=== PATIENT | female | born 1975 | race Caucasian/White ===

== ENCOUNTER → 2020-09-23 | Outpatient (CLI) | payer BC ==
--- NOTE | 2020-09-23 16:31 | Diagnostic Imaging Report ---
INDICATION: Routine screening. COMPARISON: No prior mammograms are available for comparison. This is a baseline study. TECHNIQUE: 2D and 3D bilateral screening mammography was performed with CAD. FINDINGS: Both breasts are heterogeneously dense, limiting the sensitivity of mammography. There is a circumscribed density in the superior right breast, best seen on the MLO view. This appears to be laterally located. This could represent a small cluster of cysts but additional views are recommended for further evaluation. It is not well-seen on the CC view. There is an area of questionable architectural distortion in the inferior and outer left breast and additional views of this area are recommended as well. No malignant-appearing microcalcifications are seen. The axillae are unremarkable. IMPRESSION: Bilateral breast densities. Further evaluation with additional views would be recommended. ACR BI-RADS Category 0: Incomplete. (Needs additional imaging evaluation). Result letter will be mailed to the patient. Note: At least 10% of breast cancer is not imaged by mammography. Dictated by: Dictated on workstation # [id number]
== END ==
LOC: RAD 15:38
PROVIDERS: ATTEND Obstetrics & Gynecology
DX: Z12.31 Encounter for screening mammogram for malignant neoplasm of breast (principal)
CPT/HCPCS: 77063; 77067

== ENCOUNTER → 2021-01-23 | Outpatient (CLI) | payer BC ==
--- NOTE | 2021-01-23 14:53 | Diagnostic Imaging Report ---
Indication: Bilateral breast densities. Patient presents for additional views. Correlation is made with the screening study from 09/23/2020. Bilateral 2-D and 3-D diagnostic mammography was performed. Right breast: There is a persistent nodular density in the upper and outer right breast approximately 8 cm from the nipple after additional views including spot compression ML, conventional ML as well as spot compression exaggerated CC and routine exaggerated CC views. This area should be evaluated with ultrasound. Left breast shows some persistent density in the lower outer portion approximately 7 cm from the nipple. This could represent scarring. Patient did undergo breast reduction surgery in March 2020. No discrete mass is seen. No suspicious calcifications are identified. IMPRESSION: BI-RADS 0 1. Persistent nodular density in the upper outer right breast. Further evaluation with ultrasound is recommended. 2. Residual density lower outer left breast. This could represent area of scarring from a prior breast reduction surgery. This area will be further evaluated with ultrasound as well today. ACR BI-RADS Category 0: Incomplete. (Needs additional imaging evaluation). Result letter will be mailed to the patient. Note: At least 10% of breast cancer is not imaged by mammography. Dictated by: Dictated on workstation # [id number]
--- NOTE | 2021-01-23 16:10 | Diagnostic Imaging Report ---
INDICATION: Bilateral breast densities. Correlation is made with screening mammogram from 09/23/2020 and diagnostic mammogram from 01/23/2021. Right breast: Sonographic interrogation of the upper outer right breast does show a circumscribed hypoechoic nodule at the 11 o'clock location, 4 cm from the nipple measuring 6 mm x 7 mm x 4 mm. This may account for the mammographic density. No internal vascularity is seen. No posterior acoustic shadowing is identified. No other right breast abnormalities are seen. Left breast: Sonographic interrogation from the 3-6 o'clock location left breast was performed. No sonographic abnormality is seen. No solid or cystic masses detected. IMPRESSION: 1. Unremarkable left breast. The area of linear density in the left breast may represent some scarring from patient's previous breast reduction surgery. 2. Hypoechoic nodule 11 o'clock location right breast, 4 cm from the nipple, likely accounting for the mammographic density. This does have benign features. This could represent a small lymph node or fibroadenoma. Even so, sonographic followup of the right breast in 6 months is recommended to show continued stability. BI-RADS Category 3 ACR BI-RADS Category 3: Probably benign findings. Result letter will be mailed to the patient. Note: At least 10% of breast cancer is not imaged by mammography. Dictated by: Dictated on workstation # [id number]
== END ==
LOC: RAD 14:07
PROVIDERS: ATTEND Obstetrics & Gynecology
DX: N63.11 Unspecified lump in the right breast, upper outer quadrant (principal); R92.2 Inconclusive mammogram
CPT/HCPCS: 76642; 77066; G0279; 77062

== ENCOUNTER 2021-10-23 23:36 | Emergency (ER) | payer BC, OTHER ==
[~2021-10-23] VITALS: Ht 154 cm; Wt 58.0 kg
[2021-10-24] MEDS ORDERED: ONDANSETRON 4 MG (ZOFRAN) ORAL DISSOLVE TAB SL STA (00:07)
[2021-10-24] MEDS ORDERED: KETOROLAC 60 MG/2 ML VIAL IM STA (00:07)
--- NOTE | 2021-10-24 00:08 | ED Headache ---
General Chief Complaint: Head/Cervical Problems Stated Complaint: BOTOX ON FACE YESTERDAY,HEADACHE,N/V,ABD PAIN Nursing Triage Note: patient stats she has had a headache since yesterday. received botox yesterday, headache worse. Vomitting today. Source: patient History of Present Illness Date Seen by Provider: Oct 23, 2021 Time Seen by Provider: 23:55 Initial Comments PT ARRIVES VIA POV FROM HOME STATES SHE GOT COSMETIC BOTOX INJECTIONS IN HER FACE YESTERDAY--HAS HAD THEM BEFORE AND NOT HAD PROBLEMS. HAS HAD A HEADACHE SINCE YESTERDAY, BEGAN A COUPLE OF HOURS AFTER BOTOX INJECTIONS TODAY SHE BEGAN TO HAVE NAUSEA AND VOMITING--VOMITED X 1 NO DIARRHEA HAS HAD SOME MILD LOW ABDOMINAL CRAMPING FOR THE LAST 3 DAYS--HER PERIOD IS DUE THIS WEEK. PT HAS IUD IN PLACE. NO FEVER NO COUGH OR URI SYMPTOMS PT'S IS SICK AND KIDS ARE IN SCHOOL WITH KNOWN SICK CONTACTS TOOK [facility] YESTERDAY AFTERNOON, AND TODAY AT NOON--MINIMAL RELIEF. DOES NOT TAKE ANY MEDICATIONS NORMALLY PCP: DR. PEDROZA Allergies and Home Medications Allergies Coded Allergies: No Known Drug Allergies (Unverified , 10/24/21) Patient Home Medication List Ketorolac Tromethamine (Ketorolac Tromethamine) 10 Mg Tablet, 10 MG PO Q6H Prescribed by: BRANDEN WHITE on 10/24/21 012 Ondansetron (Ondansetron Odt) 4 Mg Tab.rapdis, 4 MG PO Q4H Prescribed by: BRANDEN WHITE on 10/24/21 0124 Review of Systems Review of Systems Constitutional: no symptoms reported Eyes: No Symptoms Reported Ears, Nose, Mouth, Throat: no symptoms reported Respiratory: no symptoms reported Cardiovascular: no symptoms reported Gastrointestinal: see HPI Genitourinary: no symptoms reported Musculoskeletal: no symptoms reported Skin: no symptoms reported Psychiatric/Neurological: See HPI, Headache Past Cuiscgl-Fnrqez-Pbdohz Hx Patient Social History Tobacco Use?: Yes Tobacco type used: Cigarettes Smoking Status: Former Smoker Substance use?: No Immunizations Up To Date First/Initial COVID19 Vaccinat: Moderna Second COVID19 Vaccination Tevin: Moderna Past Medical History Respiratory: No Cardiac: No Neurological: No : No Reproductive Disorders: No [employer] M[employer]INE [employer] History: IUD Genitourinary: No Gastrointestinal: No Musculoskeletal: No Endocrine: No HEENT: No Cancer: No Psychosocial: No Integumentary: No Blood Disorders: No Physical Exam Vital Signs Vital Signs - First Documented 10/23/21 23:52 Temp 36.6 Pulse 104 Resp 20 B/P (MAP) 134/98 (110) Pulse Ox 98 O2 Delivery Room Air Capillary Refill : Less Than 3 Seconds Height, Weight, BMI Height: '" Weight: lbs. oz. kg; 24.00 BMI Method: General Appearance: WD/WN, no apparent distress HEENT: normal ENT inspection Neck: non-tender, full range of motion, supple, normal inspection Cardiovascular: regular rate, rhythm, no murmur Respiratory: normal breath sounds, no respiratory distress, no accessory muscle use Gastrointestinal: non tender, soft Back: normal inspection Extremities: normal inspection Psychiatric: alert, oriented x 3 Crainal Nerves: normal hearing, normal speech, PERRL Coordination/Gait: normal gait Motor/Sensory: no motor deficit, no sensory deficit Skin: normal color, warm/dry Progress/Results/Core Measures Results/Orders Lab Results Laboratory Tests Test 10/23/21 23:50 Range/Units Influenza Type A (RT-PCR) Not Detected Not Detecte Influenza Type B (RT-PCR) Not Detected Not Detecte SARS-CoV-2 RNA (RT-PCR) Not Detected Not Detecte My Orders Orders - BRANDEN WHITE DO Emmaid 19 Inhouse Test (10/23/21 23:58) Influenza A And B By Pcr (10/23/21 23:58) Isolation Central Supply Req (10/23/21 23:58) Ondansetron Oral Dissolve Tab (Zofran (10/24/21 00:07) Ketorolac Injection (Toradol Injection) (10/24/21 00:07) Vital Signs/I&O 10/23/21 23:52 Temp 36.6 Pulse 104 Resp 20 B/P (MAP) 134/98 (110) Pulse Ox 98 O2 Delivery Room Air Blood Pressure Mean: 110 Progress Progress Note : Progress Note PLACED IN ISOLATION ROOM PPE WORN COVID AND FLU TESTING DONE GIVEN TORADOL AND ZOFRAN WITH RESOLUTION OF SYMPTOMS NO LONGER SENSITIVE TO LIGHT PT AND MALE ARE LAYING ON THE ER CART TOGETHER DURING REMAINDER OF ER STAY Departure Impression Primary Impression: Headache Additional Impression: Nausea & vomiting Disposition: 01 HOME, SELF-CARE Condition: Improved Departure-Patient Inst. Decision time for Depature: 00:43 Referrals: DONTRELL PEDROZA DO (PCP/Family) Primary Care Physician Patient Instructions: Headache, Adult (DC), Nausea and Vomiting, Adult Add. Discharge Instructions: LOTS OF CLEAR LIQUIDS--WATER, BROTH, JELLO, GATORADE IF YOU ARE STILL HAVING SYMPTOMS YOU NEED TO BE RECHECKED IN 1-2 DAYS All discharge instructions reviewed with patient and/or family. Voiced understanding. Scripts Ketorolac Tromethamine (Ketorolac Tromethamine) 10 Mg Tablet 10 MG PO Q6H for Pain, #15 TAB Prov: BRANDEN WHITE DO 10/24/21 Ondansetron (Ondansetron Odt) 4 Mg Tab.rapdis 4 MG PO Q4H for Nausea/Vomiting, #10 TAB Prov: BRANDEN WHITE DO 10/24/21 BRANDEN WHITE DO Oct 24, 2021 00:08
[2021-10-24] MEDS ORDERED: KETO10TA PO (01:24)
[2021-10-24] MEDS ORDERED: ONDA4TAB11 PO (01:24)
[2021-10-24 01:30] VITALS: BP 134/98
== END 2021-10-24 01:30 | disposition home or self-care (01) ==
LOC: EDUNIT# 23:36 → ER 23:38
DX: R51.9 Headache, unspecified (principal); R11.2 Nausea with vomiting, unspecified; F17.210 Nicotine dependence, cigarettes, uncomplicated; Z20.822 Contact with and (suspected) exposure to COVID-19; Z28.310 Unvaccinated for COVID-19
CPT/HCPCS: 87636; 99283